=== PATIENT | female | born 1965 | race Caucasian/White ===

== ENCOUNTER 2019-04-27 16:22 | Emergency (ER) | payer OTHER ==
[~2019-04-27] VITALS: Ht 167.6 cm; Wt 91.6 kg
--- OUTSIDE RECORDS SUMMARY | ~2019-04-27 | XMS | Clinical Summary ---
Demographics + + + | Address | [address] | | | [place] [address] | + + + | Home Phone | | + + + | Preferred Language | Unknown | + + + | Marital Status | | + + + | Quaker Affiliation | Unknown | + + + | Race | Unknown | + + + | Ethnic Group | Unknown | + + + Author + + + | Author | [facility] | | | and Harjitana | + + + | Organization | [facility] | | | and [place]it[place] | + + + | Address | Unknown | + + + | Phone | Unavailable | + + + Support + + +---------+ + | Name | Relationship | Address | Phone | + + +---------+ + | IDALIA DAVID | ECON | Unknown | | + + +---------+ + Care Team Providers + +------+ + | Care Customer Care Agent Name | Role | Phone | + +------+ + PCP | Unavailable | + +------+ + Allergies Not on File Medications Not on file Active Problems Not on file Social History + +-------+ +--------+------+ | Tobacco Use | Types | Packs/Day | Years | Date | | | | | Used | | + +-------+ +--------+------+ | Never Assessed | | | | | + +-------+ +--------+------+ + + + | Sex Assigned at | Date Recorded | | | | + + + | Not on file | | + + + + + + + | Job Start Date | Occupation | Industry | + + + + | Not on file | Not on file | Not on file | + + + + + + + + | Travel History | Travel Start | Travel End | + + + + + + | No recent travel history available. | + + Last Filed Vital Signs Not on file Plan of Treatment + + + + + | Health Maintenance | Due Date | Last Done | Comments | + + + + + | Vaccine: | | | | | Dtap/Tdap/Td (1 - | 4 | | | | Tdap) | | | | + + + + + | Cervical Cancer | | | | | Screening (Pap) | 5 | | | + + + + + | Breast Cancer | | | | | Screening | 0 | | | + + + + + | Vaccine: Zoster (1 | | | | | of 2) | 5 | | | + + + + + | Vaccine: Influenza | | | | | (#1) | 9 | | | + + + + + Results Not on filefrom Last 3 Months"
--- OUTSIDE RECORDS SUMMARY | ~2019-04-27 | XMS | Clinical Summary ---
Demographics + + + | Address | [address] | | | [place] [address] | + + + | Home Phone | | + + + | Preferred Language | Unknown | + + + | Marital Status | | + + + | Spiritism Affiliation | Unknown | + + + | Race | Unknown | + + + | Ethnic Group | Unknown | + + + Author + + + | Author | [facility] | | | and [place]itana | + + + | Organization | [facility] | | | and [facility]jitana | [...] Team Providers + +------+ + | Care Chief Transfer And Pumphouse Operator Name | Role | Phone | + [...]
[~2019-04-27 16:22] MED LIST: FLUTICASONE PRO16 GM NAS; LISINOPRIL20 MG PO; RANITIDINE HCL150 MG PO
[2019-04-27] MEDS ORDERED: MOBIC7.5 MG PO (16:39)
== END 2019-04-27 17:55 | disposition home or self-care (01) ==
LOC: ED 16:22
DX: S61.011A Laceration without foreign body of right thumb without damage to nail, initial encounter (principal); W26.8XXA Contact with other sharp object(s), not elsewhere classified, initial encounter; I10 Essential (primary) hypertension; Z88.8 Allergy status to other drugs, medicaments and biological substances; Z79.899 Other long term (current) drug therapy
CPT/HCPCS: 90471; 90714; 99283-25

== ENCOUNTER 2022-06-08 08:32 | Emergency (ER) | payer OTHER ==
[~2022-06-08] VITALS: Ht 167.6 cm; Wt 105.2 kg
[~2022-06-08 08:32] MED LIST changes: +MOBIC7.5 MG PO
== END 2022-06-08 14:16 | disposition home or self-care (01) ==
LOC: ED 08:32
DX: S01.01XA Laceration without foreign body of scalp, initial encounter (principal); I10 Essential (primary) hypertension; G47.30 Sleep apnea, unspecified; Z79.899 Other long term (current) drug therapy; W19.XXXA Unspecified fall, initial encounter
CPT/HCPCS: 70450; 99283-25; A9270

== ENCOUNTER 2024-05-22 08:15 | Day surgery (SDC) | payer OTHER ==
[2024-05-20 14:35] VITALS: BP 131/84
[~2024-05-22] VITALS: Ht 167.6 cm; Wt 109.1 kg
[~2024-05-22 08:15] MED LIST changes: +CITRACAL + D E1 EACH PO; +COZAAR100 MG PO; +ESOMEPRAZOLE MA20 MG PO; +FLONASE SENSIM5.9 ML NS; +IBLOOD GLUCOSE TEST STRIP 1 EA TEST VI PRN; +LACTATED RINGER'S 1,000 ML IV SCH; +LIDOCAINE HCL 1% 5 ML SDV INJ ONE; +MIDAZOLAM HCL 5 MG/5 ML VIAL IV PRN; +NEXIUM20 MG PO; +PROBIOTIC250 MG PO; +fentaNYL citrate 100 MCG/2 ML VIAL IV PRN
[2024-05-22 08:32] VITALS: BP 133/81
[2024-05-22] MEDS ORDERED: BENEFIBER152 GM PO (08:32)
[2024-05-22] MEDS ORDERED: propofoL 200 MG/20 ML VIAL ONE ×2 (09:13→09:27)
[2024-05-22] MEDS ORDERED: LIDOCAINE HCL 2% 5 ML SDV ONE (09:14)
--- NOTE | 2024-05-22 09:58 | NUR ---
05/22/24 0958 Vilma Nava PATIENT REPOSITIONS HERSELF ONTO HER BACK. HOB IS ELEVATED AND ICED WATER IS GIVEN. PATIENT IS DRINKING THAT AND TOLERATING THAT WELL.
[2024-05-22 10:16] VITALS: BP 131/86
--- NOTE | 2024-05-23 06:46 | OR ---
[facility] [address], [place] [address] Signed DATE OF OPERATION: 05/22/2024 SURGEON: Kinjal Michelle MD PREOPERATIVE DIAGNOSES: 1. Diverticulosis. 2. 5 mm hyperplastic polyp in 2015 at age 49. 3. Internal and external hemorrhoids. 4. A brother with GIST tumor at age 57 where the small bowel joins the large bowel. POSTOPERATIVE DIAGNOSES: 1. 5 mm polyp at proximal transverse colon. 2. 4 mm polyp at 25 cm in sigmoid colon. 3. Minimal to moderate pandiverticulosis. 4. Tortuous sigmoid colon. PROCEDURE: Colonoscopy with hot biopsy. ESTIMATED BLOOD LOSS: None. INDICATIONS: Doretha is a 58-year-old obese female, asked to see me for followup colonoscopy. She is known to have diverticulosis in her small and large bowel. She told me her brother had a GIST tumor where the small bowel joins large bowel. She said it has been treated and he is doing well. No family history of adenocarcinoma of the colon or colonic polyps to her knowledge. She has no lower GI complaints. I helped her with a colonoscopy in 2015 at the age of 49. This was for screening purposes. She had a tiny 5 mm hyperplastic polyp removed. She also had some internal and external hemorrhoids along with diverticulosis. We asked her to follow up in 10 years. In the meantime, she underwent her bilateral mastectomies and bilateral TRAM flap reconstructions. She also told me about her significant sleep apnea. In that regard, she really needs monitored anesthesia care with propofol infusion. I gave her a pamphlet on colonoscopy. We had reviewed the nature of the test. There is risk including, but not limited to gas bloating, crampy abdominal pain, bleeding, perforation requiring surgery, and missed diagnosis. She had expressed understanding and wished to proceed. She understands an adult person has to take her home afterwards. She believes her will be available. She had expressed understanding and wished to proceed. Electronically Signed By: KINJAL MICHELLE MD 05/23/24 0646 PATIENT NAME: KAMILA DAVID OPERATIVE REPORT DATE OF : 63 REPORT #: [id number] PHYSICIAN: KINJAL MICHELLE MD PCP: LINDA ADAMSON MD REPORT IS CONFIDENTIAL AND NOT TO BE RELEASED WITHOUT AUTHORIZATION [facility] [address] [place] [id number] Signed PROCEDURE IN DETAIL: Doretha was taken into our endoscopy suite and placed in the left lateral decubitus position. She was given monitored anesthesia care with propofol infusion per our nurse federal air marshal. A digital rectal exam was performed and this was unremarkable. Very little in the way of any external hemorrhoids. Good sphincter tone. There were no masses. The adult colonoscope was introduced and advanced through a somewhat tortuous sigmoid colon. The scope was advanced up to the somewhat tortuous sigmoid colon. After that, the colon opened up nicely and the scope passed into the cecum itself. She did take some extra propofol. Her prep was quite excellent. We could easily see the appendiceal orifice and the ileocecal valve. The scope was then slowly withdrawn. We took several pictures throughout for photodocumentation. We found the two polyps above easily removed with help of hot biopsy forceps. She does have some diverticula throughout the entire colon. They are moderate in size, few in number and scattered about. Once in the rectum, the scope was retroflexed and really very little in the way of internal hemorrhoid tissue. After this, the gas was suctioned out and the colonoscope removed. Doretha tolerated the procedure quite well. RECOMMENDATIONS: Doretha can follow up in my office in 7 to 14 days to review her biopsy results. Kinjal Michelle MD ALB/MODL /[id number] cc: Dr. Linda Michelle MD Copies: KINJAL MICHELLE MD ~ Electronically Signed By: KINJAL MICHELLE MD 05/23/24 0646 PATIENT NAME: KAMILA DAVID OPERATIVE REPORT DATE OF : 63 REPORT #: [id number] PHYSICIAN: KINJAL MICHELLE MD PCP: LINDA ADAMSON MD REPORT IS CONFIDENTIAL AND NOT TO BE RELEASED WITHOUT AUTHORIZATION
--- NOTE | 2024-05-27 18:12 | PATH ---
[facility] [address], [place] [address] Signed SPECIMEN(S): A PROXIMAL TRANSVERSE COLON POLYP SPECIMEN(S): B SIGMOID POLYP AT 25 CM SPECIMEN SOURCE: A. PROXIMAL TRANSVERSE COLON POLYP B. SIGMOID POLYP AT 25 CM CLINICAL HISTORY: History of polyps, diverticulosis. Post; same FINAL PATHOLOGIC DIAGNOSIS: A. Colon, proximal transverse, polyp, biopsy: - Hyperplastic polyp. B. Colon, sigmoid, polyp at 25 cm, biopsy: - Benign colonic mucosa with prominent intramucosal lymphoid aggregate. - There is no evidence of neoplasia. COMMENT: A. There is no evidence of dysplasia or malignancy. B. Sections of colonic tissue demonstrate a benign intramucosal lymphoid aggregate. Intramucosal lymphoid aggregates can sometimes appear as polyps endoscopically. They have no clinical significance. There is no evidence of dysplasia or malignancy. K MICROSCOPIC EXAMINATION: Histologic sections of all submitted blocks are examined by light microscopy. These findings, together with the gross examination, support the pathologic diagnosis. GROSS DESCRIPTION: A. The specimen, labeled and designated "David W, proximal transverse colon," is received in formalin and consists of one gaffney soft tissue fragment, 0.2 cm. Entirely submitted in (A1). B. The specimen, labeled and designated "Rekha W, sigmoid polyp at 25 cm," is received in formalin and consists of one gaffney soft tissue fragment, 0.3 cm. Entirely submitted in (B1). AB (under the direct supervision of a pathologist) The Gross Description was prepared using a voice recognition system. The report was reviewed for accuracy; however, sound-alike word errors, addition and/or deletions may occur. If there is any PATIENT NAME: KAMILA DAVID PATHOLOGY DATE OF : 63 REPORT #: [id number] PHYSICIAN: BRENT PALOMARES PCP: DARYL ADAMSON MD REPORT IS CONFIDENTIAL AND NOT TO BE RELEASED WITHOUT AUTHORIZATION [facility] [address], [place] [address] Signed question about this report, please contact Client Services. ADDITIONAL NOTES: Immunohistochemical and/or in situ hybridization studies if performed in this case included appropriate positive controls that reacted as expected. This test was developed and its performance characteristics determined by [facility]. It has not been cleared or approved by the U.S. Food and Drug Administration. The FDA has determined that such clearance or approval is not necessary. This test is used for clinical purposes. It should not be regarded as investigational or for research. [facility] is certified under the Clinical Laboratory Improvement Amendments of 1988 (CLIA) as qualified to perform high complexity clinical laboratory testing. PERFORMING LABORATORY: Technical component was performed by [facility], [address] [place] [id number] (CLIA# [id number]). Professional interpretation was performed by [email or web address], [address] [place] [place] [place] [address] (CLIA#:[id number]). Diagnostician: Osman Velázquez MD Pathologist Electronically Signed 05/27/2024 Copies: ~ PATIENT NAME: KAMILA DAVID PATHOLOGY DATE OF : 63 REPORT #: [id number] PHYSICIAN: BERNT PALOMARES PCP: DARYL ADAMSON MD REPORT IS CONFIDENTIAL AND NOT TO BE RELEASED WITHOUT AUTHORIZATION
== END 2024-05-22 10:20 | disposition home or self-care (01) ==
LOC: DS 08:15
PROVIDERS: ATTEND Colon & Rectal Surgery
PROC: 0DBL8ZZ Excision of Transverse Colon, Via Natural or Artificial Opening Endoscopic (ICD-10-PCS; 2024-05-22)
PROC: 0DBN8ZZ Excision of Sigmoid Colon, Via Natural or Artificial Opening Endoscopic (ICD-10-PCS; principal; 2024-05-22 09:25)
DX: Z12.11 Encounter for screening for malignant neoplasm of colon (principal); K63.89 Other specified diseases of intestine; K57.30 Diverticulosis of large intestine without perforation or abscess without bleeding; K63.5 Polyp of colon; K64.8 Other hemorrhoids; K64.4 Residual hemorrhoidal skin tags; E66.9 Obesity, unspecified; E78.00 Pure hypercholesterolemia, unspecified; I10 Essential (primary) hypertension; K21.9 Gastro-esophageal reflux disease without esophagitis; G47.33 Obstructive sleep apnea (adult) (pediatric); Z79.899 Other long term (current) drug therapy; Z88.8 Allergy status to other drugs, medicaments and biological substances; Z86.0102 Personal history of hyperplastic colon polyps; Z99.89 Dependence on other enabling machines and devices; Z85.3 Personal history of malignant neoplasm of breast; Z68.39 Body mass index [BMI] 39.0-39.9, adult
CPT/HCPCS: 00811; J2003; J2704; J7121

== ENCOUNTER 2024-09-26 16:57 | Emergency (ER) | payer OTHER ==
[~2024-09-26] VITALS: Ht 167.6 cm; Wt 110.0 kg
[~2024-09-26 16:57] MED LIST changes: +BENEFIBER152 GM PO; -IBLOOD GLUCOSE TEST STRIP 1 EA TEST VI PRN; -LACTATED RINGER'S 1,000 ML IV SCH; -LIDOCAINE HCL 1% 5 ML SDV INJ ONE; -MIDAZOLAM HCL 5 MG/5 ML VIAL IV PRN; -fentaNYL citrate 100 MCG/2 ML VIAL IV PRN
[2024-09-26 18:14] LABS: BASOPHILS 0.6 % (0-2); EOSINOPHILS 0.9 % (0-6); HEMATOCRIT 41.5 % (35.0-50.0); HEMOGLOBIN 13.9 g/dL (12.0-18.0); LYMPHOCYTES 21.6 % (24-44); MCH 29.1 (27-36); MCHC 33.5 g/dl (30-36); MCV 86.9 fl (81-99); MONOCYTES 8.4 % (0-12); NEUTROPHILS 68.5 % (39-80); PLATELET COUNT 263 K/uL (140-440); RBC 4.77 M/ul (4.3-5.7); RDW 16.4 (10.5-15.0)
[2024-09-26 18:29] LABS: ALBUMIN 3.8 g/dL (3.4-5.0); ALBUMIN/GLOBULIN RATIO 0.9 (1.1-2.4); ANION GAP 10.1 (7-21); BILIRUBIN, TOTAL 0.4 mg/dL (0.2-1.0); BUN/CREATININE RATIO 12.32 (6.0-28.6); CALCIUM 9.5 mg/dL (8.5-10.1); CREATININE, SERUM 0.73 mg/dL (0.55-1.02); POTASSIUM 4.1 mmol/L (3.5-5.1)
[2024-09-26 18:50] LABS: BILIRUBIN, URINE NEGATIVE (negative); BLOOD/HGB, URINE NEGATIVE (Negative); KETONE, URINE NEGATIVE (Negative); LEUK ESTERASE, URINE NEGATIVE (negative); NITRITE, URINE NEGATIVE (negative)
[2024-09-26] MEDS ORDERED: LACTATED RINGER'S 1,000 ML IV ONE (19:30)
[2024-09-26] MEDS ORDERED: AMOX TR-K CLV1 EAC1 PO (22:14)
[2024-09-26] MEDS ORDERED: AMOXICILLIN/CLAVULANATE K 875 MG HOME.PACK PO ONE (22:15)
[2024-09-26 22:18] VITALS: BP 156/93
== END 2024-09-26 22:18 | disposition home or self-care (01) ==
LOC: ED 16:57
PROVIDERS: Emergency Medicine
DX: K57.32 Diverticulitis of large intestine without perforation or abscess without bleeding (principal); I10 Essential (primary) hypertension; Z88.5 Allergy status to narcotic agent; Z79.899 Other long term (current) drug therapy
CPT/HCPCS: 36415; 74177; 80053; 81003; 83690; 85025; 99284-25; J7121